=== PATIENT | male | born 1980 | race Caucasian/White ===

== ENCOUNTER 2020-12-22 08:32 | Day surgery (SDC) | payer OTHER, SELFPAY ==
[~2020-12-22] VITALS: Ht 167.6 cm; Wt 98.4 kg
[2020-12-22] MEDS ORDERED: fentaNYL CITRATE/PF 100 MCG/2 ML AMP ONE (09:31)
[2020-12-22] MEDS ORDERED: SIMETHICONE 40 MG/0.6 ML ML ONE (09:31)
[2020-12-22] MEDS ORDERED: MIDAZOLAM HCL 5 MG/5 ML VIAL ONE (09:31)
[2020-12-22 12:59] VITALS: BP_SYST 112
== END 2020-12-22 10:45 | disposition home or self-care (01) ==
LOC: SDS 08:32 → SMU 08:34 → SDS 10:45
PROVIDERS: ATTEND Internal Medicine
DX: R10.13 Epigastric pain (principal); K29.70 Gastritis, unspecified, without bleeding; K29.80 Duodenitis without bleeding; K20.90 Esophagitis, unspecified without bleeding; K44.9 Diaphragmatic hernia without obstruction or gangrene; Z20.822 Contact with and (suspected) exposure to COVID-19; Z79.899 Other long term (current) drug therapy
CPT/HCPCS: 36415; 43239; 87081; 88305; 88312; 88313; 96365; 99152; G0378; J2250; J3010; U0003